=== PATIENT | male | born 1950 | race Caucasian/White ===

== ENCOUNTER 2022-05-14 23:33 | Emergency (ER) | payer MEDICARE, SELFPAY ==
[2022-05-14 23:43] VITALS: BP 147/94; PULSE 85; RESP 18; TEMP 36.8; O2SAT 98
--- NOTE | 2022-05-14 23:45 | ED.GENADUL_ITS ---
Discharge Plan Disposition Patient Disposition: HOME Condition: Improving Discharge Details Clinical Impression: Acute urinary retention Primary Care Provider: Naheed,Local ED Provider: Chandra Johnson Home Meds and New Rx's Prescriptions: No Action No Known Home Meds Discharge Instructions Instructions: Urinary Retention in Men (ED) Additional Instructions: We will place a follow-up request for you in the urology department. Dr. Nunez's office number is [phone]. Return for fever, cessation of urine flow, or any other acute concerns. Medical Decision Making 71-year-old male presents with urinary retention for 8 hours. Unable to urinate and now with suprapubic discomfort. He has had this twice in the past and resolved with Durham catheter placement. No clear inciting event. No evidence of back pain or lower extremity involvement. Bedside ultrasound reveals distended bladder. Durham catheter placed with return of urine. We will arrange follow-up in urology clinic. Patient improved and stable for discharge with leg bag. Lab Data Lab results reviewed: Yes I reviewed the patient's lab results. Labs: Laboratory Results - last 24 hr 05/15/22 00:02 Urine Color Yellow Urine Clarity Clear Urine pH 5.5 Ur Specific Malcolm 1.010 Urine Protein Trace H Urine Ketones Negative Urine Blood Large H Urine Nitrite Negative Urine Bilirubin Negative Urine Urobilinogen 0.2 Ur Leukocyte Esterase Negative Urine RBC 10-20 H Urine WBC 0-2 Ur Epithelial Cells Few Urine Crystals Negative Urine Bacteria Rare Urine Casts Negative Urine Mucus Negative Ur Culture Indicated? No Urine Glucose Negative HPI General Mode of arrival: ambulatory . Date/Time Provider Initiated Documentation: 05/14/22 23:33 . Limitations to Documentation: no limitations . Information obtained by: patient . History of Present Illness 71 year old M presents to the emergency department with the chief complaint of 8 hours of urin waylon retention, Quality is described as dull, and is localized to the abdomen. Patient reports no radiation. Patient started experiencing this hour(s) and it has been constant. No relieving factors improve symptom(s), No exacerbating factors reported . Patient notes denies fever/chills and weakness. Patient did receive the following treatments prior to arrival, none Related Data Home Medications Medication Instructions Recorded Confirmed Unknown [No Known Home Meds] 05/19/17 05/19/17 Allergies Allergy/AdvReac Type Severity Reaction Status Date / Time No Known Allergies Allergy Unverified 05/15/22 00:06 Review of Systems Narrative: Denies medication use, no Benadryl. No fever or vomiting. Has otherwise been well. 4 systems were reviewed [facility] Social History Smoking/Tobacco Use Status: Never Smoking risk assessment performed?: Yes Alcohol Intake: current Alcohol Intake frequency: 0-2 drinks per day Drug use: Never Substance use type: does not use Do you feel safe at home: Yes Do you feel safe in your relationship?: Yes Exam Narrative Exam Narrative: GEN: awake, alert, oriented 3. Pleasant, well groomed, interactive. HEAD: Normocephalic, atraumatic ENT: Mucous membranes moist, oropharynx unremarkable, External ear exam unremarkable EYES: PERRL, EOMI NECK: Full ROM, no JEROD, no menigismus CHEST/RESP: Nontender, clear to auscultation bilateral, no wheeze/rhonchi/rales CARDIOVASCULAR: RRR, no murmur, rub marianna. 2+ Rad pulse bilateral ABDOMEN: Soft, suprapubic distention and tenderness to palpation, no mass. +Bowel sounds EXT: Full ROM, no edema, no rash Neuro: Grossly normal neurologic exam, conversant, interactive. Psych: Speech fluent, thoughts congruent, affect normal
--- NOTE | 2022-05-14 23:59 | NUR.NOTE ---
Referral faxed to [facility] Urology to f/u in three days for urinary retention. Durham catheter placed.Nursing Note:
[2022-05-15] MEDS: Lidocaine 2% Jelly 6 ML SYR (00:04)
[2022-05-15 00:13] LABS: Bilirubin Negative (Negative); Blood Large (Negative); Clarity Clear (Clear); Glucose Negative (Negative); Ketones Negative (Negative); Leukocyte Esterase Negative (Negative); Nitrite Negative (Negative); Urobilinogen 0.2 EU/dL (Up TO 0.2); pH 5.5 (5-8)
[2022-05-15 00:25] LABS: Bacteria Rare HPF (Negative); C & S Indicated? No; Casts Negative LPF (Negative); Crystals Negative HPF (Negative); Epithelial Cells Few HPF (Negative); Mucus Negative (Negative); WBC 0-2 HPF (0-5)
== END 2022-05-15 00:40 | disposition home or self-care (01) ==
LOC: ER 05-15 00:36
PROVIDERS: Emergency Provider Emergency Medicine
DX: R33.9 Retention of urine, unspecified (principal)
CPT/HCPCS: 51702; 99283; 81003; 81015; 99284

== ENCOUNTER 2022-05-19 07:44 | Emergency (ER) | payer MEDICARE, SELFPAY ==
[2022-05-19 07:50] VITALS: BP 139/84; PULSE 100; RESP 18; TEMP 36.3; O2SAT 99
--- NOTE | 2022-05-19 07:57 | ED.GENADUL_ITS ---
Discharge Plan Disposition Patient Disposition: HOME Condition: Improving Discharge Details Clinical Impression: Urinary retention Primary Care Provider: NaheedLocal ED Provider: Jomar Saul Home Meds and New Rx's Prescriptions: No Action No Known Home Meds Discharge Instructions Instructions: Urinary Retention in Men (ED) Additional Instructions: Please watch for new or worsening symptoms and return to the ER for any concerns. Otherwise please follow-up with urology as scheduled this week. Medical Decision Making 71-year-old gentleman who was seen in the ER on 05-15-2022, catheter placed for urinary retention, took the catheter out himself yesterday and is now back in retention. He is scheduled to see urology next week. Requesting a catheter placed until that time. Denies fever, abdominal pain, back pain, dysuria or hematuria. Clinically he appears well, nontoxic. Catheter placed without difficulty. Drained at least 800 cc of urine. Patient is asymptomatic. Urinalysis reveals hematuria but no signs of infection. Standard discharge and return precautions were provided. Patient understands, is agreeable to this plan, and has no additional questions or concerns upon discharge. We stressed the importance of follow-up with his urologist. This documentation was generated using [employer] dictation system, please disregard any oddities of phrase or misspellings. Medical Records Medical records reviewed: Yes I reviewed the patient's medical records. Lab Data Lab results reviewed: Yes I reviewed the patient's lab results. Labs: Laboratory Tests Range/Units 05/19/22 08:18 Urine Color (Yellow) Dark Yellow Urine Clarity (Clear) Cloudy Urine pH (5-8) 8.5 H Ur Specific Harmony (1.005-1.025) 1.020 Urine Protein (Negative) mg/dL 100 H Urine Ketones (Negative) mg/dL 15 H Urine Blood (Negative) Large H Urine Nitrite (Negative) Negative Urine Bilirubin (Negative) Small H Urine Urobilinogen (Up TO 0.2) EU/dL 0.2 Ur Leukocyte Esterase (Negative) Negative Urine RBC (0-2) HPF >50 H Urine WBC (0-5) HPF 0-2 Ur Epithelial Cells (Negative) HPF Few Urine Crystals (Negative) HPF Few Calcium Oxalate Urine Bacteria (Negative) HPF Rare Urine Casts (Negative) LPF 3-5 Fine Granular Urine Mucus (Negative) Negative Ur Culture Indicated? No Urine Glucose (Negative) mg/dL Negative HPI General Mode of arrival: ambulatory . Date/Time Provider Initiated Documentation: 05/19/22 07:45 . Limitations to Documentation: no limitations . Information obtained by: patient . HPI Narrative: This is a 71-year-old gentleman who presents for urinary retention. Patient states that he has had this happen 3 times in the past. Most recently he was seen in the ER 4 days ago, had a catheter placed and then yesterday morning took the catheter out himself. He states he was able to urinate a small amount yesterday morning but since then has not been able to urinate. He has not followed up with urology yet but is scheduled to see them this week. He denies fever, back pain, nausea, vomiting, abdominal pain, hematuria. He does report a fullness to his bladder. Related Data Home Medications Medication Instructions Recorded Confirmed Unknown [No Known Home Meds] 05/19/17 05/19/22 Allergies Allergy/AdvReac Type Severity Reaction Status Date / Time No Known Allergies Allergy Unverified 05/19/22 07:55 General Stated Complaint: Urinary JES: 3 Review of Systems Constitutional Constitutional: Denies fever(s) Gastrointestinal Gastrointestinal: Denies abdominal pain, Denies nausea and Denies vomiting Genitourinary Genitourinary: Denies hematuria, Reports difficulty urinating, Denies dysuria, Denies testicular pain and Reports urinary hesitancy Musculoskeletal Musculoskeletal: Denies back pain Integumentary/Breasts Skin/Breast: Denies rash Hematologic/Lymphatic Hematologic/Lymphatic: Denies easy bleeding and Denies easy bruising PFSH All Active Problems (Updated 05/19/22 @ 08:12 by JENNYFER Joseph) Urinary retention (Acute) Social History Smoking/Tobacco Use Status: Never Smoking risk assessment performed?: Yes Alcohol Intake: current Alcohol Intake frequency: 0-2 drinks per day Drug use: Never Substance use type: does not use Do you feel safe at home: Yes Do you feel safe in your relationship?: Yes Exam Const General: cooperative, healthy appearing, comfortable and no acute distress Orientation: alert and awake [facility] Head: normal to inspection, normocephalic and atraumatic Eyes Conjunctivae: conjunctivae normal Neck Neck: normal visual inspection, full ROM, trachea midline and supple Resp Effort & Inspection: normal respiratory effort and able to speak in complete sentences Auscultation: clear to auscultation bilaterally Cardio Rate: regular rate Rhythm: regular rhythm GI Palpation: soft, not firm, no guarding, no pulsatile masses and tender suprapubicly (Minimal) Back/Spine/Pelvis Back: no CVA tenderness and No back tenderness Skin General skin exam: no rashes or lesions noted Neuro General: patient alert, patient awake, moves all extremities and no focal motor deficits Cognition: normal cognition Speech: speech normal Gait: normal gait Sensory Exam: no sensory deficits noted Psych Appearance: grossly normal Mental Status: mental status grossly normal Course Vital Signs Vital signs: Vital Signs Temperature 36.3 C L 05/19/22 07:50 Pulse 100 H 05/19/22 07:50 Respiratory Rate 18 05/19/22 07:50 Blood Pressure 139/84 05/19/22 07:50 Pulse Oximetry 99 05/19/22 07:50 Temperature 36.3 C L 05/19/22 07:50 Temperature Source Temporal Artery Scan 05/19/22 07:50 Pulse 100 H 05/19/22 07:50 Respiratory Rate 18 05/19/22 07:50 Respiratory Effort Non-Labored 05/19/22 07:54 Blood Pressure 139/84 05/19/22 07:50 Blood Pressure Position Sitting 05/19/22 07:50 Pulse Oximetry 99 05/19/22 07:50 Oxygen Delivery Method Room Air 05/19/22 07:50 Oxygen Flow Rate 0 05/19/22 07:50 Pain Level 0 05/19/22 07:50 PAWSS Have you Been Recently Intoxicated or Drunk Within the Last 30 days?: No Have you Ever Experienced Previous Episodes of Alcohol Withdrawal?: No Have you ever Experienced Withdrawal Seizures?: No Have you ever Experienced Delirium Tremens(DT)s?: No Have you ever undergone Alcohol Rehabilitation Treatment (i.e, inpt ot outpatient treatment programs)?: No Have you ever Experienced Blackouts?: No Have you ever Combined Alcohol with other Downers within the last 90 days?: No Have you ever Combined Alcohol with any other Substance of Abuse during the last 90 days?: No Positive Blood Alcohol level on Presentation? [PCS.BAL]: No Evidence of Increased Autonomic Activity (i.e. HR>120, tremor, sweating, agitation, nausea)?: No Result: 0
[2022-05-19] MEDS: Lidocaine 2% Jelly 6 ML SYR (08:16)
[2022-05-19 08:26] LABS: Bilirubin Small (Negative); Blood Large (Negative); Clarity Cloudy (Clear); Glucose Negative (Negative); Ketones 15 mg/dL (Negative); Leukocyte Esterase Negative (Negative); Nitrite Negative (Negative); Urobilinogen 0.2 EU/dL (Up TO 0.2); pH 8.5 (5-8)
[2022-05-19 08:38] LABS: Bacteria Rare HPF (Negative); C & S Indicated? No; Casts 3-5 Fine Granular LPF (Negative); Crystals Few Calcium Oxalate HPF (Negative); Epithelial Cells Few HPF (Negative); Mucus Negative (Negative); RBC >50 HPF (0-2); WBC 0-2 HPF (0-5)
== END 2022-05-19 08:45 | disposition home or self-care (01) ==
LOC: ER 08:18
PROVIDERS: Emergency Provider Physician Assistant
DX: R33.9 Retention of urine, unspecified (principal)
CPT/HCPCS: 51702; 99283; 81003; 81015; 99282

== ENCOUNTER → 2022-06-04 08:49 | Outpatient (BNVA) | payer MEDICARE, SELFPAY | PROVIDERS: Visit Provider Nurse Practitioner Gerontology | DX: R33.8 Other retention of urine (principal) | CPT/HCPCS: 51702; 51798; 99215 ==

== ENCOUNTER → 2022-06-11 08:27 | Outpatient (BNVA) | payer MEDICARE, SELFPAY | PROVIDERS: Visit Provider Nurse Practitioner Gerontology | DX: R33.8 Other retention of urine (principal) | CPT/HCPCS: 99213 ==

== ENCOUNTER → 2022-06-25 13:54 | Outpatient (BNVA) | payer MEDICARE, SELFPAY | PROVIDERS: Visit Provider Nurse Practitioner Gerontology | DX: R33.8 Other retention of urine (principal) | CPT/HCPCS: 51702; 51798; 81003 ==

== ENCOUNTER 2022-06-25 18:09 | Outpatient (REF) | payer MEDICARE, SELFPAY | END 2022-06-25 18:10 | disposition home or self-care (01) | LOC: LBN 18:09 | PROVIDERS: Visit Provider Nurse Practitioner Gerontology | DX: R39.9 Unspecified symptoms and signs involving the genitourinary system | CPT/HCPCS: 87077; 87086; 87186 ==

== ENCOUNTER → 2022-07-11 11:54 | Outpatient (BNVA) | payer MEDICARE, SELFPAY | PROVIDERS: Visit Provider Nurse Practitioner Gerontology | DX: R33.8 Other retention of urine (principal) | CPT/HCPCS: 51702; 51798; 99214 ==

== ENCOUNTER → 2022-08-05 07:58 | Outpatient (BNVA) | payer MEDICARE, SELFPAY | PROVIDERS: Visit Provider Nurse Practitioner Gerontology | DX: R33.8 Other retention of urine (principal); R39.89 Other symptoms and signs involving the genitourinary system | CPT/HCPCS: 51702 ==

== ENCOUNTER → 2022-09-02 07:59 | Outpatient (BNVA) | payer MEDICARE, SELFPAY | PROVIDERS: Visit Provider Nurse Practitioner Gerontology | DX: Z96.0 Presence of urogenital implants (principal); R33.9 Retention of urine, unspecified | CPT/HCPCS: 99213 ==

== ENCOUNTER → 2022-09-04 14:00 | Outpatient (BNVA) | payer MEDICARE, SELFPAY | PROVIDERS: Visit Provider Nurse Practitioner Gerontology | DX: Z46.6 Encounter for fitting and adjustment of urinary device (principal); R33.9 Retention of urine, unspecified | CPT/HCPCS: 99213 ==

== ENCOUNTER 2022-11-19 09:00 | Outpatient (CLI) | payer MEDICARE, SELFPAY ==
--- NOTE | 2022-11-19 09:00 | RT.EKG_ITS ---
APPROVED REPORT Exam: Resting ECG Reason for Exam: Benign Prostatic Hyperplasia Patient Location: O HR:69 bpm ECG Measurements Heart Rate 69 AXIS MA 177 P 50 QRSd 87 QRS 34 QT 387 T 66 QTc 415 Conclusion Sinus rhythm...normal P axis, V-rate 50- 99 Normal Electrocardiogram
== END 2022-11-19 09:01 | disposition home or self-care (01) ==
PROVIDERS: Visit Provider Urology
DX: N40.0 Benign prostatic hyperplasia without lower urinary tract symptoms (principal)
CPT/HCPCS: 93005; 93010

== ENCOUNTER 2022-11-19 10:26 | Outpatient (REF) | payer MEDICARE, SELFPAY | END 2022-11-19 10:27 | disposition home or self-care (01) | LOC: LBN 10:26 | PROVIDERS: Visit Provider Urology | DX: N40.0 Benign prostatic hyperplasia without lower urinary tract symptoms (principal) | CPT/HCPCS: 87077; 87086; 87186 ==

== ENCOUNTER 2022-12-06 09:12 | Emergency (ER) | payer MEDICARE, SELFPAY ==
[2022-12-06 09:17] VITALS: BP 108/57; PULSE 99; RESP 18; TEMP 37.3; O2SAT 98
--- NOTE | 2022-12-06 09:28 | ED.GENADUL_ITS ---
Discharge Plan Disposition Patient Disposition: Home Discharge Details Clinical Impression: Urinary tract infection, Hypokalemia Primary Care Provider: Naheed,Local ED Provider: Ben Matos Home Meds and New Rx's Prescriptions: New cephalexin 500 mg tablet 500 mg PO QID Qty: 28 0RF Continued ibuprofen 200 mg Tablet 400 mg PO Q6H PRN Discharge Instructions Instructions: Urinary Tract Infection in Men (ED) Additional Instructions: Please continue following all the postop instructions were given. Drink plenty of fluids. You may take Tylenol 650 mg every 6 hours for the fever. You may also take ibuprofen 400 mg every 8 hours for fevers. Follow-up with urologist as planned. Your potassium was found to be low. That are rich in potassium (bananas, greens, nuts, orange) Medical Decision Making 72-year-old status post prostatic procedure on Friday. Has been having fevers throughout the week. Sourav decided to come to the hospital to be evaluated after he was told twice by his urologist to follow-up. Presents with a mild leukocytosis as well as a urine positive for nitrates. He will be given 1 dose of IV Rocephin. Following his IV antibiotics patient will discharge with prescription for Keflex He was also found to have some mild hypokalemia. Potassium supplementation p.o. was ordered in the emergency department. Results reviewed with patient. Treatment plan reviewed with the patient HPI General Date/Time Provider Initiated Documentation: 12/06/22 09:20 . HPI Narrative: 72-year-old gentleman presents to the emergency department status post urologic procedure at [facility] Friday. He had a photo selective vaporization and enucleation of the prostate by Dr. Thuan Walker on Friday. According to a friend at the bedside he also had a stone that was removed. Procedure lasted 4 hours under general anesthesia according to the patient. He was discharged Friday and that well. On Friday he had a 101.7 fever. The reached out to [facility] and it was recommended that he return to have some blood work and a urine sample. Patient decided to stay home continue pushing fluids. was okay day but he then developed another fever in the evening. Again they called the urology service and again it was recommended that he go back for blood work and a UA. He chose to stay home and come to the emergency department this morning. The HPI is told to me by the friend because he is too tired to provide any information Simple yes and no questions the patient denies all the following: Neck pain, chest pain, abdominal pain, cough, shortness of breath, back pain, dysuria, frequency, diarrhea, nausea, vomiting, skin changes. The patient does endorse persistent mild hematuria Related Data Home Medications Medication Instructions Recorded Confirmed cephalexin 500 mg tablet 500 mg PO QID #28 tabs 12/06/22 ibuprofen 200 mg tablet 400 mg PO Q6H PRN 12/06/22 12/06/22 Previous Rx's Medication Instructions Recorded cephalexin 500 mg tablet 500 mg PO QID #28 tabs 12/06/22 Allergies Allergy/AdvReac Type Severity Reaction Status Date / Time No Known Allergies Allergy Unverified 12/06/22 09:22 General Stated Complaint: Fever JES: 3 Review of Systems Narrative: 10 point review of system was negative unless otherwise specified in the HPI.. PFSH All Active Problems (Updated 12/06/22 @ 10:47 by Ben Matos MD) Urinary tract infection (Acute) Hypokalemia (Acute) Urinary retention (Acute) Social History Smoking/Tobacco Use Status: Never Smoking risk assessment performed?: Yes Alcohol Intake: current Alcohol Intake frequency: 0-2 drinks per day Drug use: Never Substance use type: does not use Do you feel safe at home: Yes Do you feel safe in your relationship?: Yes Exam Narrative Exam Narrative: Awake alert oriented x3 calm no acute distress PERRLA EOMI MMM Normocephalic atraumatic Neck supple Chest clear to auscultation bilaterally Heart regular rhythm and rate Abdomen soft nondistended nontender Extremities moving all extremities without limitation Skin no rash Neuro grossly intact Psych adequate mood and affect. Course Vital Signs Vital signs: Vital Signs Temperature 37.3 C 12/06/22 09:17 Pulse 99 H 12/06/22 09:17 Respiratory Rate 18 12/06/22 09:17 Blood Pressure 108/57 L 12/06/22 09:17 Pulse Oximetry 98 12/06/22 09:17 Temperature 37.3 C 12/06/22 09:17 Temperature Source Oral 12/06/22 09:17 Pulse 99 H 12/06/22 09:17 Respiratory Rate 18 12/06/22 09:17 Respiratory Effort Normal, Non-Labored 12/06/22 09:20 Blood Pressure 108/57 L 12/06/22 09:17 Blood Pressure Position Sitting 12/06/22 09:17 Pulse Oximetry 98 12/06/22 09:17 Oxygen Delivery Method Room Air 12/06/22 09:17 Oxygen Flow Rate 0 12/06/22 09:17 Pain Level 0 12/06/22 09:17
[2022-12-06 10:10] LABS: Abs Immature Grans 0.18 10^3/uL (0.0-0.06); Absolute Basophil Count 0.03 10^3/uL (0.0-0.2); Absolute Eosinophil Count 0.02 10^3/uL (0.0-0.7); Absolute Lymphocyte Count 0.71 10^3/uL (1.2-3.4); Basophils % 0.2; Eosinophils % 0.1; HCT 31.5 % (40.0-50.0); HGB 10.9 g/dL (13.5-17.5); Immature Grans % 1.2; Lymphocytes % 4.7; MCH 30.6 pg (27.0-33.0); MCHC 34.6 % (32.0-36.0); MCV 89 fL (80-95); Monocytes % 7.1; Neutrophils % 86.7; Platelet Count 106 10^3/uL (130-400); RBC 3.56 10^6/uL (4.36-5.78); RDW 13.6 % (11.8-14.1); RDW-SD 44.7 fL; WBC 15.17 10^3/uL (4.4-10.8)
[2022-12-06 10:13] LABS: Bilirubin Negative (Negative); Blood Large (Negative); Clarity Cloudy (Clear); Glucose Negative (Negative); Ketones Negative (Negative); Leukocyte Esterase Small (Negative); Nitrite Positive (Negative); Specific Gravity 1.025 (1.005-1.025)
[2022-12-06 10:13] LABS: Absolute Monocyte Count 1.08 10^3/uL (0.1-0.8); Absolute Neutrophil Count 13.15 10^3/uL (1.2-6.7)
[2022-12-06 10:21] LABS: C & S Indicated? Yes; RBC >50 HPF (0-2)
[2022-12-06] MEDS: cefTRIAXone 1 GM/50 ML BAG 100 GM (10:31)
[2022-12-06 10:36] LABS: ALT 73 U/L (16-63); AST 40 U/L (15-37); Albumin 2.5 g/dL (3.4-5.0); Alkaline Phosphatase 57 U/L (46-116); Anion Gap 5.9 mmol/L (3-11); BUN 31 mg/dL (7-18); Bilirubin, Total 0.3 mg/dL (0.2-1.0); CO2 24.1 mmol/L (21.0-32.0); CREATININE 1.2 mg/dL (0.70-1.30); Calcium 8.1 mg/dL (8.5-10.1); Chloride 105 mmol/L (98-107); Estimated GFR 65.06 (mL/min/1.73m2); Glucose 153 mg/dL (74-106); Potassium 3.1 mmol/L (3.5-5.1); Sodium 135 mmol/L (136-145); Total Protein 5.4 g/dL (6.4-8.2)
[2022-12-06] MEDS: Potassium Chloride 20 MEQ TABCR 40 MEQ PO (10:55)
[2022-12-06 11:04] VITALS: BP 93/61; PULSE 82; TEMP 37.4; O2SAT 95
--- NOTE | 2022-12-09 09:43 | ED.FU.B_ITS ---
Date of service: 12/09/22 Time of Service: 09:43 Follow Up Plan: Patient was seen in the emergency dept 12/06/2022 for fever post prostate surgery [place] [facility] He was thought to have urinary tract infection, given a dose of ceftriaxone and then discharged on Keflex. Urine culture results today growing Pseudomonas sensitive to ceftazidime, ciprofloxacin, gentamicin, imipenem, tobramycin, Zosyn. I spoke with the pharmacist who reviewed sensitivities and recommends fluoroquinolone coverage. Plan to treat with Levaquin 750mg x 5 days. Called patient, left message for him to call the emergency department.
--- NOTE | 2022-12-09 11:06 | ED.FU.B_ITS ---
Date of service: 12/09/22 Time of Service: 12:05 Follow Up Plan: I spoke with the patient and recommended we switch antibiotic. I explained reasoning for stopping Keflex and starting fluoroquinolone. I will call Levaquin prescription to his pharmacy [facility]. I did speak with urologist on-call at [facility] and relayed results. He agrees with stopping Keflex and starting Levaquin and recommends 7-day course.
--- NOTE | 2022-12-09 11:06 | W.ED.FU ---
Date of service: 12/09/22 Time of Service: 12:05 Follow Up Plan: I spoke with the patient and recommended we switch antibiotic. I explained reasoning for stopping Keflex and starting fluoroquinolone. I will call Levaquin prescription to his pharmacy [facility]. I did speak with urologist on-call at [facility] and relayed results. He agrees with stopping Keflex and starting Levaquin and recommends 7-day course.
== END 2022-12-06 11:10 | disposition home or self-care (01) ==
PROVIDERS: Emergency Provider Emergency Medicine
DX: N39.0 Urinary tract infection, site not specified (principal); E87.6 Hypokalemia; D72.829 Elevated white blood cell count, unspecified
CPT/HCPCS: 36415; 80053; 87077; 87635; 96365; 99284; 81003; 81015; 85025; 87086; 87186; J0696

== ENCOUNTER 2023-01-28 15:41 | Outpatient (REF) | payer MEDICARE, SELFPAY | END 2023-01-28 15:42 | disposition home or self-care (01) | LOC: LBN 15:41 | PROVIDERS: Visit Provider Urology | DX: N40.1 Benign prostatic hyperplasia with lower urinary tract symptoms (principal); N13.8 Other obstructive and reflux uropathy | CPT/HCPCS: 87086 ==